=== PATIENT | female | born 1990 | race Caucasian/White ===

== ENCOUNTER 2016-10-13 18:19 | Emergency (ER) | payer OTHER ==
[~2016-10-13] VITALS: Ht 157.5 cm; Wt 100.0 kg
[2016-10-13 18:46] VITALS: BP 134/90; PULSE 91; RESP 14; O2SAT 99
== END 2016-10-13 19:50 | disposition left against medical advice (07) ==
LOC: SED 18:19
DX: Z53.21 Procedure and treatment not carried out due to patient leaving prior to being seen by health care provider (principal)